=== PATIENT | female | born 1975 | race African-American/Black ===

== ENCOUNTER 2024-06-09 22:37 | Emergency (ER) | payer BC, OTHER ==
[~2024-06-09] VITALS: Ht 172.7 cm; Wt 99.6 kg
[2024-06-09 22:48] VITALS: BP 153/91; PULSE 88; RESP 18; TEMP 98.8; O2SAT 99
[2024-06-10] MEDS ORDERED: ACET500T58 PO (00:54)
[2024-06-10] MEDS: ONDANSETRON ODT 4 MG TAB PO ONE (01:10)
[2024-06-10] MEDS: ACETAMINOPHEN/CODEINE#3 (300/30mg) TAB PO ONE (01:10)
== END 2024-06-10 01:15 | disposition home or self-care (01) ==
LOC: ER 22:37
DX: G44.209 Tension-type headache, unspecified, not intractable (principal)
CPT/HCPCS: 99283; Q0162